=== PATIENT | female | born 1970 | race African-American/Black ===

== ENCOUNTER 2023-11-11 07:35 | Day surgery (SDC) | payer OTHER ==
[~2023-11-11] VITALS: Ht 180.3 cm; Wt 65.8 kg
[2023-11-11] MEDS ORDERED: fentaNYL CITRATE/PF 100 MCG/2 ML AMP ONE ×2 (08:29→08:46)
[2023-11-11] MEDS ORDERED: MIDAZOLAM HCL 5 MG/5 ML VIAL ONE ×2 (08:30→08:46)
[2023-11-11] MEDS ORDERED: DIPHENHYDRAMINE INJ 50 MG/ML VIAL ONE (08:45)
[2023-11-11 13:45] VITALS: BP_SYST 159; PULSE 57; RESP 18; TEMP 99; O2SAT 100
== END 2023-11-11 10:58 | disposition home or self-care (01) ==
LOC: SDS 07:35 → SMU 07:39 → SDS 10:58
PROVIDERS: ATTEND Internal Medicine Gastroenterology
DX: R19.4 Change in bowel habit (principal); K57.30 Diverticulosis of large intestine without perforation or abscess without bleeding; K64.8 Other hemorrhoids; K21.9 Gastro-esophageal reflux disease without esophagitis; Z80.0 Family history of malignant neoplasm of digestive organs; Z86.010 Personal history of colon polyps; N18.6 End stage renal disease; Z99.2 Dependence on renal dialysis; Z88.8 Allergy status to other drugs, medicaments and biological substances; Z79.899 Other long term (current) drug therapy
CPT/HCPCS: 45378; 99152; 99153; G0378; J1200; J2250; J3010